=== PATIENT | female | born 1940 | race African-American/Black ===

== ENCOUNTER → 2016-10-03 | Outpatient (CLI) | payer MEDICARE, BC ==
[~2016-10-03] MED LIST: CENTRUM SILVER PO; DILTIAZEM 24HR240 M2 PO; DILTIAZEM ER240 M1 PO; GLUCOPHAGE500 M1 PO; LEVOXYL125 MC1 PO
--- NOTE | ~2016-10-03 | US128 ---
[id number] [facility] [address]. [place], [place] [address] [id number] O MR#: [id number] Acc #: [id number] NAME: FLORENCE NINO : 1940 SEX: F STUDY DATE/TIME: 10/03/2016 12:55 UNIT: [facility] ROOM: STUDY DESCRIPTION: Thyroid Attending Physician: Yolanda Oviedo M.D. Referring Physician: Yolanda Oviedo M.D. Ordering Physician: Yolanda Oviedo M.D. Primary Care Physician: Meghana Gonzalez R.N. MEDICAL IMAGING REPORT This report is preliminary unless electronic signature is present EXAM Thyroid ultrasound INDICATION Abnormal thyroid gland identified by the patient's physician on her physical exam performed last Monday. The patient has been on thyroid medication for a year. TECHNIQUE Bailey-scale and color Doppler sonographic images were obtained through the thyroid gland. FINDINGS Right lobe of the thyroid gland is enlarged measuring up to 5.4 x 3.4 x 2.4 cm. Left lobe measures 2.0 x 3.6 x 1.3 cm. Within the superior pole of the right lobe of the thyroid gland there is a mixed solid and cystic nodule measuring up to 2.8 x 3.3 x 2.6 cm. An additional solid nodule, which is basically isoechoic to thyroid parenchyma, seen inferior to it. This measures 2.4 x 2.3 x 2.0 cm. It does appear to have some calcifications within it. Mixed solid and cystic nodule is seen with the inferior pole of the left lobe of the thyroid gland measuring 8.0 x 8.0 x 7.0 mm. Please note there are no prior studies available for comparison. IMPRESSION This patient has two nodules within the right lobe of the thyroid gland both of which meet size criteria for percutaneous sampling and this is recommended. Patient is also noted to have a mixed solid and cystic nodule seen within the inferior pole of the left lobe of the thyroid gland. This does not meet size criteria for percutaneous sampling. Followup ultrasound in 6 months is suggested to document stability. Dictated by... Kary Melgar M.D. THIS IS AN ELECTRONICALLY VERIFIED REPORT Kary Melgar M.D. at 10/06/2016 3:40 PM JEREMÍAS/bekah TD: 10/04/2016 20:33 JOB #: [id number] MEDICAL IMAGING REPORT Page 1 of 1 COPY
== END | disposition home or self-care (01) ==
LOC: CWCC 12:36
DX: E05.20 Thyrotoxicosis with toxic multinodular goiter without thyrotoxic crisis or storm (principal)
CPT/HCPCS: 76536